=== PATIENT | male | born 1975 ===

== ENCOUNTER 2017-09-10 17:48 | Emergency (ER) | payer OTHER ==
[2017-09-10 18:04] VITALS: BP 194/111; PULSE 79; RESP 20; TEMP 98.4; O2SAT 98
--- NOTE | 2017-09-10 18:38 | C.PDOC ---
History Of Present Illness 41 y/o male presents to ED with complaints of depression and substance abuse. Patient states he relapsed and started using heroine. He also reports that he has been depressed for the past week. Denies suicidal ideation, self-harm thoughts or any other physical complaints. Patient's last use of drugs was today. Time Seen by Provider: 09/10/17 18:18 Chief Complaint (Nursing): Psychiatric Evaluation History Per: Patient History/Exam Limitations: no limitations Onset/Duration Of Symptoms: Days Current Symptoms Are (Timing): Still Present Suicide/Self Injury Attempted (Context): None Modifying Factor(s): Other (Heroine) Associated Symptoms: Depression. denies: Anger, Anxiety, Suicidal Thoughts, Suicidal Plan Involuntary Hold By: None Recent travel outside of the [place]: No Past Medical History Reviewed: Historical Data, Nursing Documentation, Vital Signs Vital Signs: Last Vital Signs Temp 98.4 F 09/10/17 18:02 Pulse 79 09/10/17 18:02 Resp 20 09/10/17 18:02 BP 194/111 H 09/10/17 18:02 Pulse Ox 98 09/15/17 08:45 - Medical History PMH: No Chronic Diseases Surgical History: No Surg Hx Family History: States: No Known Family Hx - Social History Hx Alcohol Use: Yes Hx Substance Use: Yes - Immunization History Hx Tetanus Toxoid Vaccination: No Hx Influenza Vaccination: No Review Of Systems Constitutional: Negative for: Fever, Chills Cardiovascular: Negative for: Chest Pain, Palpitations Gastrointestinal: Negative for: Nausea, Vomiting, Abdominal Pain, Diarrhea Neurological: Negative for: Weakness, Numbness Psych: Positive for: Depression, Other (Substance abuse). Negative for: Suicidal ideation Physical Exam - Physical Exam Appears: Well, Non-toxic, No Acute Distress Skin: Normal Color, Warm, Dry Head: Atraumatic, Normacephalic Eye(s): bilateral: Normal Inspection, PERRL Oral Mucosa: Moist Neck: Supple Chest: Symmetrical, No Tenderness Cardiovascular: Rhythm Regular Respiratory: Normal Breath Sounds, No Decreased Breath Sounds, No Rales, No Rhonchi, No Wheezing Gastrointestinal/Abdominal: Soft, No Tenderness, No Distention, No Guarding, No Rebound Extremity: Normal ROM, No Tenderness, No Pedal Edema, No Deformity, No Swelling Extremity: Bilateral: Normal Color And Temperature, Normal ROM Neurological/Psych: Oriented x3, Normal Speech, Normal Cognition ED Course And Treatment O2 Sat by Pulse Oximetry: 98 (RA) Pulse Ox Interpretation: Normal Medical Decision Making Medical Decision Making: Ordered blood work and urinalysis. Crisis notified. Patient was told there was no detox beds available. Patient states he decided he wanted to leave and does not want to wait for the screener. Patient is diagnosed with substance abuse. Disposition - Disposition Referrals: [facility] at [facility] [Outside] Disposition: HOME/ ROUTINE Disposition Time: 18:55 Condition: STABLE Additional Instructions: follow up with medical clinic in 2 days call to make an appointment take medication as prescribed return to ER if symptoms worsens or progress Instructions: Opioid Use Disorder Forms: General Discharge Instructions, [employer] (Telugu) - Clinical Impression Clinical Impression: Substance abuse - Scribe Statement The provider has reviewed the documentation as recorded by the Scribannabelle Thomas All medical record entries made by the Rileyibannabelle were at my direction and personally dictated by me. I have reviewed the chart and agree that the record accurately reflects my personal performance of the history, physical exam, medical decision making, and the department course for this patient. I have also personally directed, reviewed, and agree with the discharge instructions and disposition.
== END 2017-09-10 19:02 | disposition home or self-care (01) ==
LOC: C.ER 17:48
DX: F19.10 Other psychoactive substance abuse, uncomplicated (principal)

== ENCOUNTER 2017-09-11 12:59 | Inpatient (IN) | payer MEDICAID, OTHER ==
[2017-09-11 14:06] LABS: BASO % 0.7 % (0.0-2.0); EOS # 0.1 K/uL (0.0-0.7); EOS % 2.8 % (0.0-4.0); HEMOGLOBIN 13.3 g/dL (12.0-18.0); LYMPH # 1.4 K/uL (1.0-4.3); MEAN CELL VOLUME 90.6 fL (80.0-94.0); MEAN CORPUSCULAR HEMOGLOBIN 31.4 pg (27.0-31.0); MEAN CORPUSCULAR HGB CONC 34.6 g/dL (33.0-37.0); MEAN PLATELET VOLUME 8.6 fL (7.2-11.7); MONO # 0.5 K/uL (0.0-0.8); MONO % 9.1 % (0.0-10.0); NEUT % 60.4 % (50.0-75.0); RBC 4.23 Mil/uL (4.40-5.90); RED CELL DISTRIBUTION WIDTH 14.4 % (11.5-14.5)
[2017-09-11 14:20] LABS: URINE BILIRUBIN NEGATIVE (NEGATIVE); URINE BLOOD 1+ (NEGATIVE); URINE CLARITY Clear (Clear); URINE COLOR Yellow (YELLOW); URINE GLUCOSE (UA) NORMAL (Normal); URINE LEUKOCYTE ESTERASE NEG Leu/uL (Negative); URINE NITRATE NEGATIVE (NEGATIVE); URINE PROTEIN NEGATIVE (NEGATIVE)
[2017-09-11 14:21] LABS: ALBUMIN 3.8 g/dL (3.5-5.0); ALT/SGPT 59 U/L (21-72); AST/SGOT 73 U/L (17-59); BLOOD UREA NITROGEN 19 mg/dL (9-20); CALCIUM 8.9 mg/dl (8.6-10.4); GFR AFRICAN-AMERICAN > 60; GFR NON-AFRICAN AMERICAN > 60
[2017-09-11 14:22] LABS: BARBITURATES, UR NEGATIVE (NEGATIVE); BENZODIAZEPINES, UR NEGATIVE (NEGATIVE); PHENCYCLIDINE, UR NEGATIVE (NEGATIVE)
--- NOTE | 2017-09-11 14:49 | C.PDOC ---
History Of Present Illness 41 year old male presents to the ED requesting detox. Patient admits to IV heroin abuse and states he uses around 10 bags/day. Patient also reports occasional cocaine use. He states he last used heroin this morning. Patient denies fever, chills, suicidal/homicidal ideation, and has no physical complaints at this time. Chief Complaint (Nursing): Substance Abuse History Per: Patient History/Exam Limitations: no limitations Onset/Duration Of Symptoms: Hrs Current Symptoms Are (Timing): Still Present Suicide/Self Injury Attempted (Context): None Modifying Factor(s): Narcotics (heroin), Cocaine Associated Symptoms: denies: Suicidal Thoughts, Suicidal Plan Involuntary Hold By: None Recent travel outside of the [place]: No Additional History Per: Patient Past Medical History Reviewed: Historical Data, Nursing Documentation, Vital Signs Vital Signs: Last Vital Signs Temp 98.2 F 09/11/17 16:40 Pulse 67 09/11/17 16:40 Resp 18 09/11/17 16:40 BP 156/89 H 09/11/17 16:40 Pulse Ox 97 09/11/17 16:40 - Medical History PMH: No Chronic Diseases Denies: Diabetes, Hepatitis, HIV, HTN, Seizures, Sexually Transmitted Disease Surgical History: No Surg Hx Family History: States: Unknown Family Hx - Social History Hx Alcohol Use: Yes Hx Substance Use: Yes - Immunization History Hx Tetanus Toxoid Vaccination: No Hx Influenza Vaccination: No Review Of Systems Constitutional: Negative for: Fever, Chills Psych: Positive for: Other (heroin and cocaine detox ). Negative for: Suicidal ideation Physical Exam - Physical Exam Appears: Non-toxic, No Acute Distress Skin: Normal Color, Warm, Dry Head: Atraumatic, Normacephalic Eye(s): bilateral: Normal Inspection Oral Mucosa: Moist Neck: Supple Chest: Symmetrical, No Deformity, No Tenderness Cardiovascular: Rhythm Regular, No Murmur Respiratory: Normal Breath Sounds, No Rales, No Rhonchi, No Wheezing Extremity: Normal ROM, Capillary Refill (less than 2 seconds), Other (track li to left upper extremity. no signs of infection ) Neurological/Psych: Normal Speech, Normal Cognition Gait: Steady ED Course And Treatment - Laboratory Results Result Diagrams: 09/11/17 14:02 09/11/17 14:02 O2 Sat by Pulse Oximetry: 98 (on RA ) Pulse Ox Interpretation: Normal Medical Decision Making Medical Decision Making: Progress: Bloodwork and UA ordered and reviewed. Disposition - Disposition Disposition: HOSPITALIZED Disposition Time: 16:00 Condition: STABLE - Clinical Impression Clinical Impression: Drug dependence, Drug abuse - Scribe Statement The provider has reviewed the documentation as recorded by the Scribe (Celeste Espinoza) Provider Attestation: All medical record entries made by the Scribe were at my direction and personally dictated by me. I have reviewed the chart and agree that the record accurately reflects my personal performance of the history, physical exam, medical decision making, and the department course for this patient. I have also personally directed, reviewed, and agree with the discharge instructions and disposition.
[2017-09-11 14:51] LABS: OPIATES, UR POSITIVE (NEGATIVE)
--- NOTE | 2017-09-11 18:37 | PCM.BM ---
Treatment Plan Problems - Problems identified on initial assessmt potential for opiates withdrawal Date Initiated: 09/11/17 Time Initiated: 18:36 Assessment reference: NA Status: Active anxiety Date Initiated: 09/11/17 Time Initiated: 18:37 Assessment reference: NA Status: Active - Milieu Protocol Maintain good personal hygiene: daily Encourage regular showers, daily Remind patient to perform daily oral care, daily Assist patient to perform ADL's Conduct patient checks and document Observation sheet: Q15 minutes Maintain personal safety: every shift Educate patient to report safety concerns to staff, every shift Monitor environment for contraband/sharps Medication safety: Monitor for expected outcome, potential side effects: every shift, Assess barriers to learning: every shift, Assess readiness for medication education: every shift
[2017-09-11] MEDS ORDERED: Aluminum Hydroxide/Magnesium Hydroxide Susp (30 mL) PO PRN (21:30)
[2017-09-12 10:10] VITALS: RESP 18
--- NOTE | 2017-09-12 14:12 | PCM.PSYCH ---
Initial Psychiatric Evaluation - Initial Psychiatric Evaluation Type of Admission: Voluntary Legal Status: Capacity Chief Complaint (in patient's own words): "I want to get clean" History of Present Illness and Precipitating Events: 41 y.o. M with PMHx significant for heroin use (>20 years), cocaine and alcohol abuse who presented to the ED requesting detox for heroin use following a recent relapse. Patient states that he recently finished rehab at [facility] in [place], was clean for approx. 3 months then relapsed 3 weeks ago. He has had 3 previous detoxes for ETOH and 2 previous rehab stays at [facility]. His longest length of sobriety has been 18 months. Patient states that his heroin use is typically 8 bags/day IV. Patient is currently single, has 2 children 28 yo and 23 yo. He lives with friend in [place] at the moment. 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 Denies any pain killer, ETOH , xanax, ectasy or adderall use. It was discussed at length with the patient, therapy with methadone -vs- suboxone. Patient expressed his understanding of the treatment options, and general expectations going forward. No other complaints are noted at this time. Detox Hx: 3 prior detoxes for ETOH at other centers, Rehab Hx:2x rehab stays at [facility] in [place] Medical Hx: HTN uncontrolled Medications: none Psych Hx: denies. denies trauma or abuse, no legal issues, Fam Hx: denies Tobacco: 0.5 ppd Current Medications: Active Medications Generic Name Dose Route Start Last Admin Trade Name Freq PRN Reason Stop Dose Admin Al Hydrox/Mg Hydrox/Simethicone 30 ml 09/11/17 21:30 Maalox 30 Ml PO TID PRN Indigestion / Heartburn Clonidine HCl 0.1 mg 09/11/17 22:00 09/11/17 22:21 Catapres PO 0.1 mg Q8 PRN Administration COWS Score More or Equal to 5 Dicyclomine HCl 20 mg 09/11/17 21:22 Bentyl PO Q6 PRN Other Gabapentin 400 mg 09/12/17 10:00 09/12/17 13:49 Neurontin PO 400 mg TID TRACEY Administration Hydroxyzine HCl 50 mg 09/12/17 10:15 Atarax PO Q6 PRN Anxiety Ibuprofen 400 mg 09/11/17 21:23 Motrin Tab PO Q6 PRN Pain, moderate (4-7) Loperamide HCl 2 mg 09/11/17 22:00 Imodium PO Q8 PRN Diarrhea Ondansetron HCl 4 mg 09/11/17 22:00 Zofran Tab PO Q8 PRN Nausea/Vomiting Trazodone HCl 100 mg 09/12/17 10:13 Desyrel PO HS TRACEY Past Psychiatric History - Past Psychiatric History History of Abuse: denies History of ETOH/Drug Use: (+) h/o ETOH, heroin, cocaine History of Family Illness: denies Pertinent Medical Hx (Current Medical&Sleep Prob, Allergies): Allergies Allergy/AdvReac Type Severity Reaction Status Date / Time No Known Allergies Allergy Unverified 09/10/17 18:05 No Known Home Med 09/10/17 Review of Systems - Psychiatric Psychiatric: As Per HPI. absent: Anxiety, Auditory Hallucinations, Confusion, Depression, Hallucinations, Homicidal Ideation, Suicidal Ideation, Visual Hallucinations Mental Status Examination - Personal Presentation Personal Presentation: Looks stated age - Affect Affect: Blunted - Motor Activity Motor Activity: Calm - Reliability in Providing Information Reliability in Providing Information: Good - Speech Speech: Organized - Mood Additional comments: Annoyed, slightly angered - Formal Thought Process Formal Thought Process: No Impairment - Obsessions/Compulsions Obsessions: No Compulsions: No - Cognitive Functions Orientation: Person, Place, Situation, Time Sensorium: Alert Attention/Concentration: Attentive Abstract Thinking: [place] Estimate of Intelligence: Average Judgement: Intact, as evidence by: Insight regarding need for hospitalization Memory: Recent intact, as evidence by: Ability to recall events of the day, Remote intact, as evidenced by: Abilit to recall sig. life events - Risk Risk: Withdrawal - Strength & Assets Inventory Strength & Assets Inventory: Employment history, Life experience, Cooperative - Limitations Limitations: Other (uninsured, unemployed, currently relying on a friend for correction ) DSM 5 DX - DSM 5 DSM 5 Diagnosis: Opioid Withdrawal Opioid Use d/o - severe Cocaine use Nicotine use d/o - Recommended/Plan of Treatment Treatment Recommendations and Plan of Treatment: Methadone detox Gabapentin for augmentation As needed medications All risks, benefits and alternatives of the meds discussed, and the pt agreed and understood. Attend groups and activities Supportive therapy and psychoeducation VT for abstinence CBT for relapse prevention Encourage MAT Refer to rehab or IOP, and self-help groups Smoking cessation with VT 34 min Projected ELOS: 4-5 days Prognosis: good with treatment Discharge Plan and Discharge Criteria: Rehab and MAT - Smoking Cessation Smoking Cessation Initiated: No Reason for not providing: Patient declined
[2017-09-13 10:17] VITALS: BP 130/76; PULSE 88; TEMP 97.7; O2SAT 98
== END 2017-09-13 14:30 | disposition home or self-care (01) | DRG 745 ==
LOC: C.ER 12:59 → C.7D 16:13
PROC: HZ91ZZZ Pharmacotherapy for Substance Abuse Treatment, Methadone Maintenance (ICD-10-PCS; principal; 2017-09-11)
PROC: HZ2ZZZZ Detoxification Services for Substance Abuse Treatment (ICD-10-PCS; 2017-09-11)
PROC: HZ52ZZZ Individual Psychotherapy for Substance Abuse Treatment, Cognitive-Behavioral (ICD-10-PCS; 2017-09-11)
PROC: HZ59ZZZ Individual Psychotherapy for Substance Abuse Treatment, Supportive (ICD-10-PCS; 2017-09-11)
PROC: HZ56ZZZ Individual Psychotherapy for Substance Abuse Treatment, Psychoeducation (ICD-10-PCS; 2017-09-11)
PROC: HZ57ZZZ Individual Psychotherapy for Substance Abuse Treatment, Motivational Enhancement (ICD-10-PCS; 2017-09-11)
DX: F11.23 Opioid dependence with withdrawal (principal); F14.90 Cocaine use, unspecified, uncomplicated; I10 Essential (primary) hypertension; F17.210 Nicotine dependence, cigarettes, uncomplicated

== ENCOUNTER 2017-10-03 19:23 | Emergency (ER) | payer MEDICAID, OTHER ==
[2017-10-03 19:39] VITALS: PULSE 90; RESP 18; O2SAT 97
--- NOTE | 2017-10-03 20:18 | C.PDOC ---
History Of Present Illness 41 year old male presents to the ED requesting detox for heroin and cocaine. Patient states her uses heroin and cocaine IV, his last use was today at 14:00. Patient denies SI/HI, hallucinations, CP, SOB, abdominal pain, vomit, diarrhea. Chief Complaint (Nursing): Substance Abuse History Per: Patient History/Exam Limitations: no limitations Onset/Duration Of Symptoms: Days Current Symptoms Are (Timing): Gone Suicide/Self Injury Attempted (Context): None Modifying Factor(s): Cocaine, Other (Heroin) Associated Symptoms: denies: Depression, Suicidal Thoughts, Suicidal Plan Involuntary Hold By: None Recent travel outside of the [place]: No Additional History Per: Patient Past Medical History Reviewed: Historical Data, Nursing Documentation, Vital Signs Vital Signs: Last Vital Signs Temp 98.3 F 10/03/17 20:25 Pulse 90 10/03/17 20:25 Resp 18 10/03/17 20:25 BP 151/87 H 10/03/17 20:25 Pulse Ox 97 10/03/17 20:26 - Medical History PMH: HTN Denies: Diabetes, Hepatitis, HIV, Seizures, Sexually Transmitted Disease Surgical History: No Surg Hx - [facility] Procedures DETOXIFICATION SERVICES FOR SUBSTANCE ABUSE TREATMENT (09/11/17) INDIV PSYCHOTHERAPY FOR SUBSTANCE ABUSE TREATMENT, SUPPORT (09/11/17) INDIV PSYCHOTHERAPY FOR SUBSTANCE ABUSE, COGNITIV BEHAVIORAL (09/11/17) INDIV PSYCHOTHERAPY FOR SUBSTANCE ABUSE, MOTIVATION ENHANCE (09/11/17) INDIV PSYCHOTHERAPY FOR SUBSTANCE ABUSE, PSYCHOEDUCATION (09/11/17) PHARMACOTHERAPY FOR SUBSTANCE ABUSE, METHADONE MAINT (09/11/17) Family History: States: Unknown Family Hx - Social History Hx Alcohol Use: Yes Hx Substance Use: Yes (heroin) - Immunization History Hx Tetanus Toxoid Vaccination: No Hx Influenza Vaccination: No Review Of Systems Constitutional: Negative for: Fever, Chills Cardiovascular: Negative for: Chest Pain Respiratory: Negative for: Cough, Shortness of Breath Gastrointestinal: Negative for: Vomiting, Abdominal Pain Skin: Negative for: Rash Psych: Negative for: Depression, Suicidal ideation Physical Exam - Physical Exam Appears: Non-toxic, No Acute Distress Skin: Normal Color, Warm, Dry Head: Atraumatic, Normacephalic Eye(s): bilateral: Normal Inspection Nose: No Discharge Oral Mucosa: Moist Neck: Normal ROM, Supple Chest: Symmetrical Cardiovascular: Rhythm Regular, No Murmur Respiratory: Normal Breath Sounds, No Rales, No Rhonchi, No Wheezing Gastrointestinal/Abdominal: Soft, No Tenderness, No Guarding, No Rebound Extremity: Normal ROM, No Tenderness, No Swelling, Other (IV track li on left arm) Neurological/Psych: Oriented x3, Normal Speech Gait: Steady ED Course And Treatment O2 Sat by Pulse Oximetry: 97 (On RA) Pulse Ox Interpretation: Normal Medical Decision Making Medical Decision Making: Impression: detox request Plan: * Crisis gave patient resources for other detox facilities * No detox beds available at this time Disposition - Disposition Referrals: [facility] at [facility] [Outside] Disposition: HOME/ ROUTINE Disposition Time: 20:18 Condition: GOOD Additional Instructions: Pt given referrals for detox facilities Forms: [employer] (Ugandan) Print Language: ARABIC - Clinical Impression Clinical Impression: Heroin abuse - Scribe Statement The provider has reviewed the documentation as recorded by the Scribe Sreekanth Santiago All medical record entries made by the Scribe were at my direction and personally dictated by me. I have reviewed the chart and agree that the record accurately reflects my personal performance of the history, physical exam, medical decision making, and the department course for this patient. I have also personally directed, reviewed, and agree with the discharge instructions and disposition.
[2017-10-03 20:44] VITALS: BP 151/87; TEMP 98.3
== END 2017-10-03 20:30 | disposition home or self-care (01) ==
LOC: C.ER 19:23
DX: F11.10 Opioid abuse, uncomplicated (principal)

== ENCOUNTER 2017-11-04 00:09 | Emergency (ER) | payer MEDICAID ==
--- NOTE | 2017-11-04 00:32 | C.PDOC ---
History Of Present Illness 41 year old male presents to the ED for depression and suicidal ideation. Patient reports he wants to hurt himself by overdosing on cocaine and heroin. Time Seen by Provider: 11/04/17 00:32 Chief Complaint (Nursing): Psychiatric Evaluation History Per: Patient History/Exam Limitations: no limitations Onset/Duration Of Symptoms: Hrs Current Symptoms Are (Timing): Still Present Suicide/Self Injury Attempted (Context): Other (suicidal ideation ) Modifying Factor(s): None Severity: None Associated Symptoms: Depression, Suicidal Thoughts, Suicidal Plan Involuntary Hold By: None Recent travel outside of the [place]: No Additional History Per: Patient Past Medical History Reviewed: Historical Data, Nursing Documentation, Vital Signs Vital Signs: Last Vital Signs Temp 98.6 F 11/04/17 04:19 Pulse 77 11/04/17 04:19 Resp 16 11/04/17 04:19 BP 132/63 11/04/17 04:19 Pulse Ox 98 11/04/17 04:26 - Medical History PMH: HTN Denies: Diabetes, Hepatitis, HIV, Seizures, Sexually Transmitted Disease Surgical History: No Surg Hx - [facility] Procedures DETOXIFICATION SERVICES FOR SUBSTANCE ABUSE TREATMENT (09/11/17) INDIV PSYCHOTHERAPY FOR SUBSTANCE ABUSE TREATMENT, SUPPORT (09/11/17) INDIV PSYCHOTHERAPY FOR SUBSTANCE ABUSE, COGNITIV BEHAVIORAL (09/11/17) INDIV PSYCHOTHERAPY FOR SUBSTANCE ABUSE, MOTIVATION ENHANCE (09/11/17) INDIV PSYCHOTHERAPY FOR SUBSTANCE ABUSE, PSYCHOEDUCATION (09/11/17) PHARMACOTHERAPY FOR SUBSTANCE ABUSE, METHADONE MAINT (09/11/17) Family History: States: Unknown Family Hx - Social History Hx Alcohol Use: Yes Hx Substance Use: Yes (heroin) - Immunization History Hx Tetanus Toxoid Vaccination: No Hx Influenza Vaccination: No Hx Pneumococcal Vaccination: No Review Of Systems Constitutional: Negative for: Fever, Chills, Sweats Cardiovascular: Negative for: Chest Pain Respiratory: Negative for: Cough, Shortness of Breath Gastrointestinal: Negative for: Nausea, Vomiting, Diarrhea Musculoskeletal: Negative for: Back Pain Skin: Negative for: Rash Neurological: Negative for: Weakness Psych: Positive for: Depression, Suicidal ideation Physical Exam - Physical Exam Appears: Non-toxic, No Acute Distress, Other (Tearful ) Skin: Normal Color, Warm, Dry Head: Normacephalic Eye(s): bilateral: Normal Inspection Oral Mucosa: Moist Neck: Supple Chest: Symmetrical, No Deformity Cardiovascular: Rhythm Regular, No Murmur Respiratory: Normal Breath Sounds, No Decreased Breath Sounds, No Rales, No Rhonchi, No Wheezing Gastrointestinal/Abdominal: Soft, No Tenderness Back: Normal Inspection Extremity: Normal ROM (x 4) Extremity: Bilateral: Atraumatic Neurological/Psych: Oriented x3 Gait: Steady ED Course And Treatment - Laboratory Results Result Diagrams: 11/04/17 01:33 11/04/17 01:33 O2 Sat by Pulse Oximetry: 98 (RA) Pulse Ox Interpretation: Normal Progress Note: Time: 31. Plan: -- Alcohol Serum. -- CMP. -- Urine Drug Screen. -- CBC with differentials. -- [facility] Crisis Evaluation. 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 - Scribe Statement The provider has reviewed the documentation as recorded by the Ervin Downs Physician Patient Turnover Patient Signed Over To: Katina Monique Handoff Comments: pending crisis eval and disposition
[2017-11-04 01:36] LABS: BASO % 0.2 % (0.0-2.0); EOS # 0.1 K/uL (0.0-0.7); HEMOGLOBIN 12.1 g/dL (12.0-18.0); LYMPH # 1.4 K/uL (1.0-4.3); LYMPH % 15.4 % (20.0-40.0); MEAN CELL VOLUME 89.1 fL (80.0-94.0); MEAN CORPUSCULAR HGB CONC 34.8 g/dL (33.0-37.0); MEAN PLATELET VOLUME 8.1 fL (7.2-11.7); MONO # 0.7 K/uL (0.0-0.8); MONO % 7.8 % (0.0-10.0); NEUT # 6.8 K/uL (1.8-7.0); NEUT % 75.6 % (50.0-75.0); RBC 3.91 Mil/uL (4.40-5.90)
[2017-11-04 01:53] LABS: ALB/GLOB RATIO 0.9 (1.0-2.1); ALBUMIN 3.8 g/dL (3.5-5.0); ALT/SGPT 31 U/L (21-72); AST/SGOT 52 U/L (17-59); BLOOD UREA NITROGEN 20 mg/dL (9-20); CALCIUM 8.6 mg/dl (8.6-10.4); GFR AFRICAN-AMERICAN > 60; GFR NON-AFRICAN AMERICAN > 60
[2017-11-04 04:16] LABS: BARBITURATES, UR NEGATIVE (NEGATIVE); BENZODIAZEPINES, UR NEGATIVE (NEGATIVE); PHENCYCLIDINE, UR NEGATIVE (NEGATIVE); URINE BILIRUBIN NEGATIVE (NEGATIVE); URINE BLOOD 1+ (NEGATIVE); URINE CLARITY Clear (Clear); URINE COLOR Amber (YELLOW); URINE GLUCOSE (UA) NORMAL (Normal); URINE LEUKOCYTE ESTERASE NEG Leu/uL (Negative); URINE PROTEIN NEGATIVE (NEGATIVE)
[2017-11-04 04:27] LABS: OPIATES, UR POSITIVE (NEGATIVE)
[2017-11-04 06:22] VITALS: TEMP 98
[2017-11-04 08:53] VITALS: BP 138/91; PULSE 64; RESP 20; O2SAT 99
== END 2017-11-04 09:07 | disposition home or self-care (01) ==
LOC: C.ER 00:09
DX: F32.9 Major depressive disorder, single episode, unspecified (principal); F19.10 Other psychoactive substance abuse, uncomplicated

== ENCOUNTER 2018-10-26 18:29 | Inpatient (IN) | payer MEDICAID ==
[2018-10-26 20:07] LABS: BASO % 0.4 % (0.0-2.0); EOS # 0.1 K/uL (0.0-0.7); HEMOGLOBIN 11.4 g/dL (12.0-18.0); LYMPH # 1.1 K/uL (1.0-4.3); LYMPH % 19.1 % (20.0-40.0); MEAN CORPUSCULAR HEMOGLOBIN 27.8 pg (27.0-31.0); MEAN CORPUSCULAR HGB CONC 32.9 g/dL (33.0-37.0); MONO # 0.4 K/uL (0.0-0.8); MONO % 6.9 % (0.0-10.0); NEUT # 4.1 K/uL (1.8-7.0); NEUT % 72.6 % (50.0-75.0); RBC 4.11 Mil/uL (4.40-5.90); RED CELL DISTRIBUTION WIDTH 17.5 % (11.5-14.5); WHITE BLOOD COUNT 5.7 K/uL (4.8-10.8)
[2018-10-26 20:16] LABS: SQUAMOUS EPITHIAL < 1 /hpf (0-5); URINE BACTERIA RARE (<OCC); URINE BILIRUBIN NEGATIVE (NEGATIVE); URINE BLOOD NEGATIVE (NEGATIVE); URINE CLARITY Clear (Clear); URINE COLOR Yellow (YELLOW); URINE GLUCOSE (UA) NORMAL (Normal); URINE HYALINE CAST 0-2 /lpf (0-2); URINE LEUKOCYTE ESTERASE NEG Leu/uL (Negative); URINE PROTEIN NEGATIVE (NEGATIVE); URINE UROBILINOGEN NORMAL mg/dL (0.2-1.0)
[2018-10-26 20:23] LABS: BARBITURATES, UR NEGATIVE (NEGATIVE); BENZODIAZEPINES, UR NEGATIVE (NEGATIVE); PHENCYCLIDINE, UR NEGATIVE (NEGATIVE)
[2018-10-26 20:28] LABS: OPIATES, UR POSITIVE (NEGATIVE)
[2018-10-26 20:29] LABS: ALB/GLOB RATIO 1.1 (1.0-2.1); ALT/SGPT 18 U/L (21-72); AST/SGOT 48 U/L (17-59); BLOOD UREA NITROGEN 17 mg/dL (9-20); CALCIUM 8.7 mg/dl (8.6-10.4); GFR NON-AFRICAN AMERICAN > 60
--- NOTE | 2018-10-26 20:30 | C.PDOC ---
History Of Present Illness 42 year old male long time heroin abuser, uses 5 bags a day for 20 years now. Patient detoxed 7-8 years ago, stayed clean for a little less than a year now, states he now wants to detox again. Last use was at noon today, notes he smokes marijuana once in a while, but no other drug or ETOH use. Denies other complaints. Time Seen by Provider: 10/26/18 20:16 Chief Complaint (Nursing): Substance Abuse History Per: Patient History/Exam Limitations: no limitations Onset/Duration Of Symptoms: Days Current Symptoms Are (Timing): Still Present Modifying Factor(s): Other (Heroin) Involuntary Hold By: None Recent travel outside of the [place]: No Past Medical History Reviewed: Historical Data, Nursing Documentation, Vital Signs Vital Signs: Last Vital Signs Temp 99 F 10/26/18 18:32 Pulse 105 H 10/26/18 18:32 Resp 18 10/26/18 18:32 BP 181/100 H 10/26/18 18:32 Pulse Ox 98 10/26/18 18:32 - Medical History PMH: HTN Denies: Diabetes, Hepatitis, HIV, Seizures, Sexually Transmitted Disease - [facility] Procedures DETOXIFICATION SERVICES FOR SUBSTANCE ABUSE TREATMENT (09/11/17) INDIV PSYCHOTHERAPY FOR SUBSTANCE ABUSE TREATMENT, SUPPORT (09/11/17) INDIV PSYCHOTHERAPY FOR SUBSTANCE ABUSE, COGNITIV BEHAVIORAL (09/11/17) INDIV PSYCHOTHERAPY FOR SUBSTANCE ABUSE, MOTIVATION ENHANCE (09/11/17) INDIV PSYCHOTHERAPY FOR SUBSTANCE ABUSE, PSYCHOEDUCATION (09/11/17) PHARMACOTHERAPY FOR SUBSTANCE ABUSE, METHADONE MAINT (09/11/17) Family History: States: Unknown Family Hx - Social History Hx Alcohol Use: No Hx Substance Use: Yes (heroin) - Immunization History Hx Tetanus Toxoid Vaccination: No Hx Influenza Vaccination: No Hx Pneumococcal Vaccination: No Review Of Systems Constitutional: Negative for: Fever, Chills Cardiovascular: Negative for: Chest Pain, Palpitations Respiratory: Negative for: Cough, Shortness of Breath Gastrointestinal: Negative for: Nausea, Vomiting Genitourinary: Negative for: Dysuria, Hematuria Musculoskeletal: Negative for: Back Pain Skin: Negative for: Rash Neurological: Negative for: Weakness, Numbness Physical Exam - Physical Exam Appears: Non-toxic Skin: Warm Head: Atraumatic, Normacephalic Eye(s): bilateral: Normal Inspection Oral Mucosa: Moist Chest: Symmetrical, No Tenderness Cardiovascular: Rhythm Regular Respiratory: Normal Breath Sounds, No Rales, No Rhonchi, No Wheezing Gastrointestinal/Abdominal: Soft, No Tenderness Extremity: Other (Track li on left forearm, no sign of infection) Pulses: Left Radial: Normal, Right Radial: Normal Neurological/Psych: Oriented x3, Normal Speech ED Course And Treatment - Laboratory Results Result Diagrams: 10/26/18 20:10/26/18 20: Lab Results: Total Bilirubin 0.9 mg/dL (0.2-1.3) 10/26/18 20: AST 48 U/L (17-59) 10/26/18 20: ALT 18 U/L (21-72) L D 10/26/18 20: Alkaline Phosphatase 136 U/L (38-126) H 10/26/18 20: Total Protein 7.6 g/dL (6.3-8.3) 10/26/18 20: Albumin 4.0 g/dL (3.5-5.0) 10/26/18 20: Globulin 3.6 gm/dL (2.2-3.9) 10/26/18 20: Albumin/Globulin Ratio 1.1 (1.0-2.1) 10/26/18 20: Urine Color Yellow (YELLOW) 10/26/18 20: Urine Clarity Clear (Clear) 10/26/18 20: Urine pH 5.0 (5.0-8.0) 10/26/18 20: Ur Specific [place] 1.020 (1.003-1.030) 10/26/18 20: Urine Protein Negative mg/dL (NEGATIVE) 10/26/18 20: Urine Glucose (UA) Normal mg/dL (Normal) 10/26/18 20: Urine Ketones Negative mg/dL (NEGATIVE) 10/26/18 20: Urine Blood Negative (NEGATIVE) 10/26/18 20: Urine Nitrate Negative (NEGATIVE) 10/26/18 20: Urine Bilirubin Negative (NEGATIVE) 10/26/18 20: Urine Urobilinogen Normal mg/dL (0.2-1.0) 10/26/18 20: Ur Leukocyte Esterase Neg Liu/uL (Negative) 04/11/19 20:01 Urine WBC (Auto) 2 /hpf (0-5) 10/26/18 20:01 Urine RBC (Auto) 1 /hpf (0-3) 10/26/18 20:01 Ur Squamous Epith Cells < 1 /hpf (0-5) 10/26/18 20:01 Urine Bacteria Rare (<OCC) 10/26/18 20:01 Hyaline Casts 0-2 /lpf (0-2) 10/26/18 20:01 O2 Sat by Pulse Oximetry: 98 (room air) Pulse Ox Interpretation: Normal Medical Decision Making Medical Decision Making: Plan: * Blood work * Urinalysis * Crisis eval Patient medically cleared, evaluated by crisis, accepted to detox under Dr. Pringle. Dx: opiate use disorder, severe. Disposition - Disposition Disposition: HOSPITALIZED Disposition Time: 20:47 Condition: STABLE - Clinical Impression Clinical Impression: Opiate abuse, continuous - Scribe Statement The provider has reviewed the documentation as recorded by the Scribe Yaniv Knight All medical record entries made by the Scribe were at my direction and personally dictated by me. I have reviewed the chart and agree that the record accurately reflects my personal performance of the history, physical exam, medical decision making, and the department course for this patient. I have also personally directed, reviewed, and agree with the discharge instructions and disposition.
[2018-10-26 20:32] LABS: MEAN CELL VOLUME 84.4 fL (80.0-94.0)
--- NOTE | 2018-10-26 21:11 | PCM.BM ---
<Piotr Patel - Last Filed: 10/26/18 21:08> Treatment Plan Problems - Problems identified on initial assessmt denial Date Initiated: 10/26/18 Time Initiated: 21:08 Assessment reference: NA Status: Active defensive coping Date Initiated: 10/26/18 Time Initiated: 21:10 Assessment reference: NA Status: Active chronic low self esteem Date Initiated: 10/26/18 Time Initiated: 21:11 Assessment reference: NA Status: Active Treatment assets and liabiliti Patient Assests: adapts well, cooperative Patient Liabilities: substance abuse - Milieu Protocol Maintain good personal hygiene: daily Encourage regular showers, daily Remind patient to perform daily oral care, daily Assist patient to perform ADL's Conduct patient checks and document Observation sheet: Q15 minutes Maintain personal safety: every shift Educate patient to report safety concerns to staff, every shift Monitor environment for contraband/sharps Medication safety: Monitor for expected outcome, potential side effects: every shift, Assess barriers to learning: every shift, Assess readiness for medication education: every shift <Greer Santana - Last Filed: 10/27/18 16:10> Family Contact Family involvement: No known Family/SO - Goals for Treatment Patient goals for treatment: Complete detox and apply for long-term rehab. Discharge/Continuing Care - Education Needs Education Needs: Patient Medication, Patient Diagnosis/Disease Process, Patient Coping Skills, Patient Anger Management skills, Patient Placement options, Patient Community resources - Discharge Discharge Criteria: No longer exhibiting s/s of withdrawal, Reduction of target symptoms Discharge to:: Substance Abuse Rehab - Treatment Team Participation Patient/Family/SO Statement: 10/27/18 16:10 "I wanna go to the [employer] in [place]..." Discussed with Family/SO: No Was Patient/Family/SO present at Treatment Team Meeting: Yes
--- NOTE | 2018-10-27 09:38 | PCM.PSYCH ---
Initial Psychiatric Evaluation - Initial Psychiatric Evaluation Type of Admission: Voluntary Legal Status: Capacity Chief Complaint (in patient's own words): "I need detox" History of Present Illness and Precipitating Events: Patient is seen, chart reviewed and plan discussed with team. Patient is a 42 year old male, currently single with two children ages 29 and 24. He is homeless, and currently not working. Patient presented to detox for heroin use. He currently uses 5 bags per day IV. He claims it is "strong heroin." Patient reports using heroin for the past 20 years. He has been to detox 3-4 times. His longest period of sobriety was 8 months two years ago. He has been to rehab two years ago, does not recall facility name. Currently he has withdrawal symptoms of feeling achy, nauseous, chills, irate, anxious, COWS>10 Patient also reports cocaine and marijuana use. He stated using them occasionally. He is a current smoker, 1 pps. His stated his mood being depressed and down. Also, seems to be irate. Psych Hx Denies Fam Psych Hx denies Medication Denies PMHx HTN Trauma Denies Past Psychiatric History - Past Psychiatric History Previous Treatment History: None Pertinent Medical Hx (Current Medical&Sleep Prob, Allergies): Allergies Allergy/AdvReac Type Severity Reaction Status Date / Time No Known Allergies Allergy Verified 11/04/17 00:28 No Known Home Med 10/03/17 Review of Systems - Neurological Neurological: Tremor - Psychiatric Psychiatric: Abnormal Sleep Pattern, Anhedonia, Anxiety, Depression, Difficulty Concentrating. absent: Homicidal Ideation, Suicidal Ideation Mental Status Examination - Personal Presentation Personal Presentation: Looks stated age - Affect Affect: Constricted - Motor Activity Motor Activity: Calm - Reliability in Providing Information Reliability in Providing Information: Fair - Speech Speech: Organized - Mood Mood: Depressed - Formal Thought Process Formal Thought Process: No Impairment - Cognitive Functions Orientation: Person, Place, Situation, Time Sensorium: Alert Estimate of Intelligence: Average Judgement: Intact, as evidence by: Insight regarding need for hospitalization Memory: Recent intact, as evidence by: Ability to recall events of the day, Remote intact, as evidenced by: Abilit to recall sig. life events - Risk Risk: Withdrawal, Diminished functioning - Strength & Assets Inventory Strength & Assets Inventory: Cooperative - Limitations Limitations: Living alone, Other DSM 5 DX - DSM 5 DSM 5 Diagnosis: OPioid withdrawal Opioid use d/o - severe Cannabis use d/o - severe Tobacco use d/o - severe Depressive d/o - unspecified HTN - Recommended/Plan of Treatment Treatment Recommendations and Plan of Treatment: Taper with methadone Remeron if needed Gabapentin for augmentation if needed As needed medications All risks, benefits and alternatives of the meds discussed, and the pt agreed and understood. Attend groups and activities Supportive therapy and psychoeducation [place] for abstinence CBT for relapse prevention Encourage MAT Refer to rehab or IOP, and self-help groups Teach healthy lifestyle methods, i.e. diet, exercise, meditation Smoking cessation with [place] Nicotine patch if needed 34 min Projected ELOS: 4 days Prognosis: good - Smoking Cessation Smoking Cessation Initiated: Yes
[2018-10-27] MEDS ORDERED: Aluminum Hydroxide/Magnesium Hydroxide Susp (30 mL) PO PRN (09:41)
--- NOTE | 2018-10-28 23:08 | PCM.PYCHPN ---
Psychiatric Progress Note - Psychiatric Progress Note Patient seen today, length of contact: 15 minutes Patient Chief Complaint: I am feeling little better. I still have withdrawal symptoms. Problems Identified/Issues Discussed: Patient seen, chart reviewed, case discussed with the staff. Issues related to illness and treatment were discussed with the patient and staff. Reported compliant with treatment with no adverse effects. Tolerating treatment very well. Patient reported feeling little better as patient still has withdrawal symptoms including sweating, body aches, mild diarrhea, sleeping problem. Mood reported as anxious. Affect appropriate. Aftercare discussed with the patient. Patient denied any delusions, auditory or visual hallucinations, no suicidal ideations or homicidal ideations at the time of evaluation. Medical Problems: Hypertension Diagnostic Results: Reviewed Medication Change: No Medical Record Reviewed: Yes Mental Status Examination - Cognitive Function Orientation: Person, Place, Situation, Time Memory: Intact Attention: WNL Concentration: WNL Association: WN Fund of Knowledge: [facility] Decription of patient's judgement and insights: Fair - Mood Mood: Anxious - Affect Affect: Other (Appropriate) - Speech Speech: Appropriate - Formal Thought Process Formal Thought Process: No Impairment Psychotic Thoughts and Behaviors: None - Suicidal Ideation Suicidal Ideation: No - Homicidal Ideation Homicidal Ideation: No Goal/Treatment Plan - Goal/Treatment Plan Need for Continued Stay: Remain at risks for inpatient hospitalization, Discharge may exacerbated symptoms, Severe functional impairment Progress Toward Problem(s) and Goals/Treatment Plan: Patient education. Supportive therapy. CBT for relapse prevention. [place] for abstinence. Continue treatment as before. Patient wants to go to [facility] for follow-up care after discharge from the hospital. Estimated Date of D/C: 10/31/18 - Smoking Cessation Smoking Cessation Initiated: No
[2018-10-29 16:23] VITALS: O2SAT 100
[2018-10-29 19:15] VITALS: TEMP 97.9
--- NOTE | 2018-10-30 08:36 | PCM.PYCHDC ---
Mental Status Examination - Mental Status Examination Orientation: Person Discharge Summary - Discharge Note Consultations:: List each consultation separately and include: 1. Reason for request. 2. Findings. 3. Follow-up Summary of Hospital Course include:: 1. Description of specific treatment plan utilized for patients during their course of treatmen. 2. Summarize the time- course for resolution of acute symptoms and/or regressed behaviors. 3. Describe issues identified and worked on during hospitalization. 4. Describe medication utilized. 5. Describe medical problems identified and treated. 6. Reassessment of suicide risk Summary of Hospital Course: Patient is seen, chart reviewed and plan discussed with team. Patient is a 42 year old male, currently single with two children ages 29 and 24. He is homeless, and currently not working. Patient presented to detox for heroin use. He currently uses 5 bags per day IV. He claims it is "strong heroin." Patient reports using heroin for the past 20 years. He has been to detox 3-4 times. His longest period of sobriety was 8 months two years ago. He has been to rehab two years ago, does not recall facility name. Currently he has withdrawal symptoms of feeling achy, nauseous, chills, irate, anxious, COWS>10 Patient also reports cocaine and marijuana use. He stated using them occasionally. He is a current smoker, 1 pps. His stated his mood being depressed and down. Also, seems to be irate. Psych Hx Denies Fam Psych Hx denies Medication Denies PMHx HTN Trauma Denies He will go to [facility]. - Final Diagnosis (DSM 5) Condition upon Discharge: STABLE Disposition: HOME/ ROUTINE Follow-up Treatment Plan: Taper with methadone Remeron if needed Gabapentin for augmentation if needed As needed medications All risks, benefits and alternatives of the meds discussed, and the pt agreed and understood. Attend groups and activities Supportive therapy and psychoeducation [place] for abstinence CBT for relapse prevention Encourage MAT Refer to rehab or IOP, and self-help groups Teach healthy lifestyle methods, i.e. diet, exercise, meditation Smoking cessation with [place] Nicotine patch if needed 34 min Prescriptions/Medication Reconciliation: traZODone [Desyrel] 100 mg PO HS PRN #30 tab PRN Reason: Insomnia
[2018-10-30 08:37] VITALS: BP 144/82; PULSE 76; RESP 20
== END 2018-10-30 10:15 | disposition home or self-care (01) | DRG 772 ==
LOC: C.ER 18:29 → C.7D 20:47
PROVIDERS: ADMIT Psychiatry & Neurology Psychiatry; ATTEND Psychiatry & Neurology Psychiatry
PROC: HZ2ZZZZ Detoxification Services for Substance Abuse Treatment (ICD-10-PCS; principal; 2018-10-26)
PROC: HZ42ZZZ Group Counseling for Substance Abuse Treatment, Cognitive-Behavioral (ICD-10-PCS; 2018-10-26)
PROC: HZ52ZZZ Individual Psychotherapy for Substance Abuse Treatment, Cognitive-Behavioral (ICD-10-PCS; 2018-10-26)
PROC: HZ59ZZZ Individual Psychotherapy for Substance Abuse Treatment, Supportive (ICD-10-PCS; 2018-10-26)
PROC: HZ56ZZZ Individual Psychotherapy for Substance Abuse Treatment, Psychoeducation (ICD-10-PCS; 2018-10-26)
PROC: HZ46ZZZ Group Counseling for Substance Abuse Treatment, Psychoeducation (ICD-10-PCS; 2018-10-26)
PROC: GZHZZZZ Group Psychotherapy (ICD-10-PCS; 2018-10-26)
PROC: GZ58ZZZ Individual Psychotherapy, Cognitive-Behavioral (ICD-10-PCS; 2018-10-26)
PROC: GZ56ZZZ Individual Psychotherapy, Supportive (ICD-10-PCS; 2018-10-26)
DX: F11.23 Opioid dependence with withdrawal (principal); I10 Essential (primary) hypertension; F32.9 Major depressive disorder, single episode, unspecified; F12.20 Cannabis dependence, uncomplicated; F17.210 Nicotine dependence, cigarettes, uncomplicated; F14.90 Cocaine use, unspecified, uncomplicated; Z59.0 Homelessness; G47.00 Insomnia, unspecified